=== PATIENT | female | born 1975 | race Caucasian/White ===

== ENCOUNTER 2018-03-05 10:48 | Outpatient (CLI) | payer MEDICAID ==
[~2018-03-05 10:48] MED LIST: ALBU8.5H8 IH; BENZ1LOZ15 PO; ESCI20TA29 PO; FAMO-1 PO; GUAI120015 PO; HYDR25TA4 PO; LEVO200T46 PO; LISI-600 PO; METO-292 PO; OXYB5TAB80 PO; PSEU-259 PO; TERA5CAP4 PO
[2018-03-05 11:44] LABS: BASOPHILS # (AUTO) 0.1 X10'3 (0-0.2); BASOPHILS % (AUTO) 0.6 % (0-1); EOSINOPHILS # (AUTO) 0.5 X10'3 (0-0.9); EOSINOPHILS % (AUTO) 5.7 % (0-6); HEMATOCRIT 36.3 % (35.0-45.0); HEMOGLOBIN 12.4 g/dl (12.0-16.0); LYMPHOCYTES # (AUTO) 1.9 X10'3 (1.1-4.8); LYMPHOCYTES % (AUTO) 20.8 % (21-51); MEAN CORPUSCULAR HEMOGLOBIN 30.6 PG (27.0-31.0); MEAN CORPUSCULAR HGB CONC 34.2 % (33.0-36.5); MEAN CORPUSCULAR VOLUME 89.4 FL (78-98); MEAN PLATELET VOLUME 10.4 FL (7.4-10.4); MONOCYTES # (AUTO) 0.5 X10'3 (0-0.9); NEUTROPHILS # (AUTO) 6.3 X10'3 (1.8-7.7); NEUTROPHILS % (AUTO) 67.9 % (42-75); PLATELET COUNT 195 X10'3 (140-440); RED BLOOD COUNT 4.06 X10'6 (4.20-5.60); RED CELL DISTRIBUTION WIDTH 14.7 % (11.5-14.5); WHITE BLOOD COUNT 9.2 X10'3 (4.5-11.0)
[2018-03-05 12:11] LABS: ALANINE AMINOTRANSFERASE 100 U/L (12-78); ALBUMIN 3.4 G/DL (3.4-5.0); ALBUMIN/GLOBULIN RATIO 0.8 (1.1-1.5); ALKALINE PHOSPHATASE 316 IU/L (46-116); ANION GAP 11 (8-16); ASPARTATE AMINO TRANSFERASE 22 U/L (10-37); BILIRUBIN,TOTAL 0.4 MG/DL (0.1-1.0); BLOOD UREA NITROGEN 14 MG/DL (7-18); BUN/CREATININE RATIO 17.9 (6.6-38.0); CALCIUM 8.9 MG/DL (8.5-10.1); CHLORIDE 106 MMOL/L (99-107); CREATININE 0.78 MG/DL (0.40-0.90); MAGNESIUM 1.9 MG/DL (1.5-2.4); PHOSPHORUS 4.4 MG/DL (2.3-4.5); SODIUM 143 MMOL/L (135-145); TOTAL CARBON DIOXIDE 26.5 MMOL/L (24-32); TOTAL PROTEIN 7.5 G/DL (6.4-8.2); TRIGLYCERIDES 182 MG/DL (20-135); eGFR 80 ML/MIN
[2018-03-05 12:12] LABS: GLUCOSE 94 MG/DL (70-104); VANCOMYCIN,TROUGH 17.6 UG/ML (6.0-14.0)
[2018-03-05 12:30] LABS: LARGE PLATELETS FEW; PLATELET ESTIMATE NORMAL
== END 2018-03-05 23:59 | disposition home or self-care (01) ==
LOC: LAB SPEC 10:48
DX: K31.84 Gastroparesis (principal); I10 Essential (primary) hypertension; J45.909 Unspecified asthma, uncomplicated
CPT/HCPCS: 36415; 80053; 80202; 83735; 84100; 84478; 85025

== ENCOUNTER 2018-03-26 07:01 | Day surgery (SDC) | payer MEDICAID ==
[~2018-03-26] VITALS: Ht 162.6 cm; Wt 104.2 kg
[2018-03-26] MEDS ORDERED: normal saline 1000ml 1,000 ML IV PRN (07:30)
[2018-03-26 07:43] VITALS: BP 147/91
[2018-03-26] MEDS ORDERED: midazolam 2 mg/2 ml injection IV PRN (08:30)
[2018-03-26] MEDS ORDERED: fentaNYL/PF 50MCG/1 ML 2ML syringe IV PRN (08:30)
[2018-03-26] MEDS ORDERED: midazolam 2 mg/2 ml injection ONE (08:30)
[2018-03-26] MEDS ORDERED: LIDOcaine 1%/PF (10mg/ml) 5ml vial SQ ONE (08:30)
[2018-03-26] MEDS ORDERED: fentaNYL/PF 50MCG/1 ML 2ML syringe ONE (08:30)
[2018-03-26] MEDS ORDERED: LEVOTHYROXINE SODIUM INJ (08:33)
[2018-03-26] MEDS ORDERED: ONDA4TAB9 PO (08:33)
[2018-03-26] MEDS ORDERED: HYOS0.1277 SL (08:33)
[2018-03-26] MEDS ORDERED: CAT2P TD (08:33)
[2018-03-26] MEDS ORDERED: MORPHINE SULFATE PO (08:33)
[2018-03-26] MEDS ORDERED: MORPHINE PO (08:33)
[2018-03-26] MEDS ORDERED: normal saline 1000ml 1,000 ML IV SCH (08:39)
[2018-03-26] MEDS ORDERED: LIDOcaine 0.5% (5mg/ml) 50ml vial ONE (08:44)
[2018-03-26 10:00] VITALS: BP 144/83
[2018-03-26 10:15] VITALS: BP 96/50
[2018-03-26 10:30] VITALS: BP 145/65
[2018-03-26 10:45] VITALS: BP 113/61
[2018-03-26 11:15] VITALS: BP 126/88
== END 2018-03-26 11:20 | disposition home or self-care (01) ==
LOC: SSTAY O 07:01
PROVIDERS: ATTEND Radiology Diagnostic Radiology
DX: K31.84 Gastroparesis (principal); I10 Essential (primary) hypertension; I25.10 Atherosclerotic heart disease of native coronary artery without angina pectoris; K21.9 Gastro-esophageal reflux disease without esophagitis; Z90.49 Acquired absence of other specified parts of digestive tract; F32.9 Major depressive disorder, single episode, unspecified; F41.9 Anxiety disorder, unspecified; J45.998 Other asthma; Z90.710 Acquired absence of both cervix and uterus; Z98.51 Tubal ligation status; Z79.891 Long term (current) use of opiate analgesic; Z91.040 Latex allergy status; Z87.891 Personal history of nicotine dependence; Z88.8 Allergy status to other drugs, medicaments and biological substances; Z79.899 Other long term (current) drug therapy
CPT/HCPCS: 36558; 76937; 77001; 99152; 99153; A9270; C1751; C1894; J2001; J2250; J3010; J7030; 36580; A4620

== ENCOUNTER 2018-04-13 11:35 | Emergency (ER) | payer MEDICAID ==
[~2018-04-13] VITALS: Ht 162.6 cm; Wt 104.5 kg
[~2018-04-13 11:35] MED LIST changes: -ALBU8.5H8 IH; -BENZ1LOZ15 PO; +CAT2P TD; -ESCI20TA29 PO; -FAMO-1 PO; -GUAI120015 PO; -HYDR25TA4 PO; +HYOS0.1277 SL; -LEVO200T46 PO; +LEVOTHYROXINE SODIUM INJ; -LISI-600 PO; -METO-292 PO; +MORPHINE PO; +MORPHINE SULFATE PO; +ONDA4TAB9 PO; -OXYB5TAB80 PO; -PSEU-259 PO; -TERA5CAP4 PO
[2018-04-13] MEDS ORDERED: diphenhydrAMINE 50 mg/ml inj IM ONE (12:15)
[2018-04-13 13:19] VITALS: BP 148/68
== END 2018-04-13 13:21 | disposition home or self-care (01) ==
LOC: ER 11:35
DX: T80.218A Other infection due to central venous catheter, initial encounter (principal); L08.9 Local infection of the skin and subcutaneous tissue, unspecified; I10 Essential (primary) hypertension; J45.909 Unspecified asthma, uncomplicated; E03.9 Hypothyroidism, unspecified; G89.29 Other chronic pain; F12.90 Cannabis use, unspecified, uncomplicated; Z85.9 Personal history of malignant neoplasm, unspecified; Z90.79 Acquired absence of other genital organ(s); Z90.710 Acquired absence of both cervix and uterus; Z56.0 Unemployment, unspecified; Z91.040 Latex allergy status; Z88.8 Allergy status to other drugs, medicaments and biological substances; Z79.899 Other long term (current) drug therapy
CPT/HCPCS: 71045; 96372; 99283; J1200; 99284

== ENCOUNTER 2018-05-19 17:43 | Emergency (ER) | payer MEDICAID ==
[~2018-05-19] VITALS: Ht 162.6 cm; Wt 104.0 kg
[2018-05-19 19:16] VITALS: BP 154/89
== END 2018-05-19 19:16 | disposition home or self-care (01) ==
LOC: ER 17:44
DX: T82.898A Other specified complication of vascular prosthetic devices, implants and grafts, initial encounter (principal); I10 Essential (primary) hypertension; J45.909 Unspecified asthma, uncomplicated; E03.9 Hypothyroidism, unspecified; F12.90 Cannabis use, unspecified, uncomplicated; Z90.49 Acquired absence of other specified parts of digestive tract; Z90.710 Acquired absence of both cervix and uterus; Z56.0 Unemployment, unspecified; Z91.040 Latex allergy status; Z88.8 Allergy status to other drugs, medicaments and biological substances; Z79.899 Other long term (current) drug therapy
CPT/HCPCS: 99281

== ENCOUNTER 2018-05-25 12:01 | Outpatient (CLI) | payer MEDICAID ==
[2018-05-25 12:29] LABS: ALANINE AMINOTRANSFERASE 28 U/L (12-78); ALBUMIN 3.3 G/DL (3.4-5.0); ALBUMIN/GLOBULIN RATIO 0.9 (1.1-1.5); ALKALINE PHOSPHATASE 98 IU/L (46-116); ANION GAP 4 (8-16); ASPARTATE AMINO TRANSFERASE 22 U/L (10-37); BILIRUBIN,TOTAL 0.2 MG/DL (0.1-1.0); BLOOD UREA NITROGEN 15 MG/DL (7-18); BUN/CREATININE RATIO 15.5 (6.6-38.0); CHLORIDE 106 MMOL/L (99-107); CREATININE 0.97 MG/DL (0.40-0.90); POTASSIUM 4.2 MMOL/L (3.5-5.1); SODIUM 140 MMOL/L (135-145); TOTAL CARBON DIOXIDE 29.7 MMOL/L (24-32); TOTAL PROTEIN 7.1 G/DL (6.4-8.2); TRIGLYCERIDES 232 MG/DL (20-135); eGFR 62 ML/MIN
[2018-05-25 12:30] LABS: GLUCOSE 76 MG/DL (70-104)
[2018-05-25 12:35] LABS: BASOPHILS % (AUTO) 0.5 % (0-1); EOSINOPHILS # (AUTO) 0.8 X10'3 (0-0.9); EOSINOPHILS % (AUTO) 8.6 % (0-6); HEMATOCRIT 36.8 % (35.0-45.0); HEMOGLOBIN 12.5 g/dl (12.0-16.0); LYMPHOCYTES # (AUTO) 2.7 X10'3 (1.1-4.8); LYMPHOCYTES % (AUTO) 30.1 % (21-51); MEAN CORPUSCULAR HEMOGLOBIN 29.9 PG (27.0-31.0); MEAN CORPUSCULAR HGB CONC 33.9 % (33.0-36.5); MEAN CORPUSCULAR VOLUME 88.2 FL (78-98); MEAN PLATELET VOLUME 10.7 FL (7.4-10.4); MONOCYTES # (AUTO) 0.5 X10'3 (0-0.9); NEUTROPHILS # (AUTO) 4.9 X10'3 (1.8-7.7); NEUTROPHILS % (AUTO) 54.8 % (42-75); PLATELET COUNT 197 X10'3 (140-440); RED BLOOD COUNT 4.18 X10'6 (4.20-5.60); RED CELL DISTRIBUTION WIDTH 13.8 % (11.5-14.5)
== END 2018-05-25 23:59 | disposition home or self-care (01) ==
LOC: LAB SPEC 12:01
PROVIDERS: ATTEND Internal Medicine Gastroenterology
DX: K31.84 Gastroparesis (principal); F10.10 Alcohol abuse, uncomplicated; I10 Essential (primary) hypertension
CPT/HCPCS: 36415; 80053; 83735; 84100; 84478; 85025

== ENCOUNTER 2019-09-15 08:32 | Emergency (ER) | payer MEDICAID ==
[~2019-09-15] VITALS: Ht 162.6 cm; Wt 99.0 kg
[2019-09-15 08:42] VITALS: BP 169/78
== END 2019-09-15 11:00 | disposition home or self-care (01) ==
LOC: ER 08:33
DX: Z45.2 Encounter for adjustment and management of vascular access device (principal); I10 Essential (primary) hypertension; J45.909 Unspecified asthma, uncomplicated; E03.9 Hypothyroidism, unspecified; G89.29 Other chronic pain; F32.9 Major depressive disorder, single episode, unspecified; F12.90 Cannabis use, unspecified, uncomplicated; Z90.49 Acquired absence of other specified parts of digestive tract; Z90.710 Acquired absence of both cervix and uterus; Z56.0 Unemployment, unspecified; Z91.040 Latex allergy status; Z88.8 Allergy status to other drugs, medicaments and biological substances; Z79.899 Other long term (current) drug therapy
CPT/HCPCS: 70360; 71045; 99284; 99285

== ENCOUNTER 2019-12-20 09:10 | Day surgery (SDC) | payer MEDICAID ==
[2019-12-20] VITALS (11 sets, daily range): BP systolic 128–167; BP diastolic 63–81
[~2019-12-20] VITALS: Ht 162.6 cm; Wt 117.2 kg
[2019-12-20] MEDS ORDERED: diphenhydrAMINE 25mg capsule PO PRN (09:40)
[2019-12-20] MEDS ORDERED: normal saline 1,000 ML IV SCH (09:40)
[2019-12-20] MEDS ORDERED: FAMO20TA8 IV (09:44)
[2019-12-20] MEDS ORDERED: FAMO40TA7 IV (09:44)
[2019-12-20] MEDS ORDERED: diphenhydramine IV (09:51)
[2019-12-20] MEDS ORDERED: TPN (09:51)
[2019-12-20] MEDS ORDERED: [UNRECOGNIZED DRUG - OTHER] IV (09:51)
[2019-12-20] MEDS ORDERED: Famotidine IV (09:51)
[2019-12-20] MEDS ORDERED: NITR0.4T51 SL (09:51)
[2019-12-20 10:19] LABS: BASOPHILS # (AUTO) 0.1 X10'3 (0-0.2); BASOPHILS % (AUTO) 0.7 % (0-1); EOSINOPHILS # (AUTO) 0.7 X10'3 (0-0.9); EOSINOPHILS % (AUTO) 7.8 % (0-6); HEMATOCRIT 36.3 % (35.0-45.0); HEMOGLOBIN 12.4 g/dl (12.0-16.0); LYMPHOCYTES # (AUTO) 2.9 X10'3 (1.1-4.8); LYMPHOCYTES % (AUTO) 32.6 % (21-51); MEAN CORPUSCULAR HEMOGLOBIN 28.5 PG (27.0-31.0); MEAN CORPUSCULAR HGB CONC 34.2 g/dL (33.0-36.5); MEAN CORPUSCULAR VOLUME 83.2 FL (78-98); MONOCYTES # (AUTO) 0.5 X10'3 (0-0.9); MONOCYTES % (AUTO) 5.8 % (2-12); NEUTROPHILS # (AUTO) 4.8 X10'3 (1.8-7.7); NEUTROPHILS % (AUTO) 53.1 % (42-75); PLATELET COUNT 254 X10'3 (140-440); RED BLOOD COUNT 4.37 X10'6 (4.20-5.60); RED CELL DISTRIBUTION WIDTH 15.4 % (11.5-14.5)
[2019-12-20] MEDS ORDERED: diphenhydrAMINE 50 mg/ml inj IV ONE (10:25)
[2019-12-20 10:29] LABS: ALBUMIN 3.4 G/DL (3.4-5.0); ANION GAP 6 (8-16); BLOOD UREA NITROGEN 11 MG/DL (7-18); BUN/CREATININE RATIO 12.4 (6.6-38.0); CALCIUM 8.8 MG/DL (8.5-10.1); CHLORIDE 107 MMOL/L (99-107); CREATININE 0.89 MG/DL (0.40-0.90); GLUCOSE 90 MG/DL (70-104); MAGNESIUM 1.7 MG/DL (1.5-2.4); POTASSIUM 4.2 MMOL/L (3.5-5.1); SODIUM 140 MMOL/L (135-145); TOTAL CARBON DIOXIDE 27.1 MMOL/L (24-32); eGFR 68 ML/MIN
[2019-12-20] MEDS ORDERED: LIDOcaine 1% (10mg/ml)w/preservative injection 20ml MDV ONE (10:31)
[2019-12-20] MEDS ORDERED: fentaNYL/PF 50MCG/1 ML 2ML syringe ONE ×2 (10:31→11:07)
[2019-12-20] MEDS ORDERED: iohexol 350MG/ML 100ml bottle IV ONE (10:31)
[2019-12-20] MEDS ORDERED: iohexol 350 MG/ML 50ML vial IV ONE (10:31)
[2019-12-20] MEDS ORDERED: midazolam 2 mg/2 ml injection ONE ×4 (10:31→11:08)
[2019-12-20] MEDS ORDERED: morphine 2 MG/ML inj. syringe ONE (11:11)
[2019-12-20] MEDS ORDERED: proCHLORperazine 10 MG/2 ml inj IV PRN (11:55)
[2019-12-20] MEDS ORDERED: HYDROcodone/acetaminophen 10/325mg tab PO PRN (11:55)
[2019-12-20] MEDS ORDERED: acetaminophen 325mg tablet PO PRN (11:55)
[2019-12-20] MEDS ORDERED: HYDROcodone/acetaminophen 5mg/325mg tablet PO PRN (11:55)
[2019-12-20] MEDS ORDERED: ondansetron/PF 4mg/2ml inj IV PRN (11:55)
== END 2019-12-20 15:00 | disposition home or self-care (01) ==
LOC: SSTAY O 09:10
PROVIDERS: ATTEND Internal Medicine Cardiovascular Disease
DX: R94.39 Abnormal result of other cardiovascular function study (principal); E78.5 Hyperlipidemia, unspecified; Z79.01 Long term (current) use of anticoagulants; Z79.899 Other long term (current) drug therapy
CPT/HCPCS: 36415; 80048; 83735; 85025; 85610; 93458; 99152; 99153; C1769; C1894; J1200; J1644; J2001; J2250; J2270; J3010; J7030; Q9967; A4620; A6258; C1760

== ENCOUNTER 2021-06-01 16:08 | Outpatient (CLI) | payer MEDICAID ==
[~2021-06-01 16:08] MED LIST changes: +Famotidine IV; -HYOS0.1277 SL; -MORPHINE PO; -MORPHINE SULFATE PO; +NITR0.4T51 SL; -ONDA4TAB9 PO; +TPN; +[UNRECOGNIZED DRUG - OTHER] IV; +diphenhydramine IV
[2021-06-01 17:06] LABS: BASOPHILS # (AUTO) 0.1 X10'3 (0-0.2); EOSINOPHILS # (AUTO) 0.6 X10'3 (0-0.9); EOSINOPHILS % (AUTO) 8.6 % (0-6); HEMATOCRIT 38.4 % (35.0-45.0); HEMOGLOBIN 12.7 g/dl (12.0-16.0); LYMPHOCYTES # (AUTO) 2.5 X10'3 (1.1-4.8); LYMPHOCYTES % (AUTO) 33.9 % (21-51); MEAN CORPUSCULAR HGB CONC 33.1 g/dL (33.0-36.5); MEAN CORPUSCULAR VOLUME 90.7 FL (78-98); MEAN PLATELET VOLUME 10.1 FL (7.4-10.4); MONOCYTES # (AUTO) 0.5 X10'3 (0-0.9); MONOCYTES % (AUTO) 6.9 % (2-12); NEUTROPHILS # (AUTO) 3.7 X10'3 (1.8-7.7); NEUTROPHILS % (AUTO) 49.6 % (42-75); PLATELET COUNT 214 X10'3 (140-440); RED BLOOD COUNT 4.23 X10'6 (4.20-5.60); RED CELL DISTRIBUTION WIDTH 14.8 % (11.5-14.5); WHITE BLOOD COUNT 7.5 X10'3 (4.5-11.0)
[2021-06-01 17:24] LABS: ALANINE AMINOTRANSFERASE 23 U/L (12-78); ALBUMIN 3.3 G/DL (3.4-5.0); ALBUMIN/GLOBULIN RATIO 0.9 (1.1-1.5); ALKALINE PHOSPHATASE 101 IU/L (46-116); ANION GAP 8 (8-16); ASPARTATE AMINO TRANSFERASE 19 U/L (10-37); BILIRUBIN,TOTAL 0.2 MG/DL (0.1-1.0); BLOOD UREA NITROGEN 9 MG/DL (7-18); BUN/CREATININE RATIO 10.6 (6.6-38.0); CALCIUM 8.1 MG/DL (8.5-10.1); CHLORIDE 107 MMOL/L (99-107); CREATININE 0.85 MG/DL (0.40-0.90); GLUCOSE 104 MG/DL (70-104); MAGNESIUM 1.7 MG/DL (1.5-2.4); POTASSIUM 3.8 MMOL/L (3.5-5.1); SODIUM 145 MMOL/L (135-145); TOTAL CARBON DIOXIDE 29.6 MMOL/L (24-32); eGFR 72 ML/MIN
== END 2021-06-01 23:59 | disposition home or self-care (01) ==
LOC: LAB SPEC 16:08
PROVIDERS: ATTEND Internal Medicine Gastroenterology
DX: K31.84 Gastroparesis (principal)
CPT/HCPCS: 36415; 80053; 83735; 85025

== ENCOUNTER → 2021-08-14 | Outpatient (CLI) | payer MEDICAID ==
[2021-08-14 17:47] LABS: BASOPHILS # (AUTO) 0.1 X10'3 (0-0.2); BASOPHILS % (AUTO) 0.5 % (0-1); EOSINOPHILS # (AUTO) 0.5 X10'3 (0-0.9); EOSINOPHILS % (AUTO) 4.4 % (0-6); HEMATOCRIT 38.6 % (35.0-45.0); HEMOGLOBIN 12.7 g/dl (12.0-16.0); LYMPHOCYTES % (AUTO) 27.4 % (21-51); MEAN CORPUSCULAR HEMOGLOBIN 29.1 PG (27.0-31.0); MEAN CORPUSCULAR VOLUME 88.2 FL (78-98); MEAN PLATELET VOLUME 9.9 FL (7.4-10.4); MONOCYTES # (AUTO) 0.9 X10'3 (0-0.9); MONOCYTES % (AUTO) 7.7 % (2-12); NEUTROPHILS # (AUTO) 6.6 X10'3 (1.8-7.7); PLATELET COUNT 267 X10'3 (140-440); RED BLOOD COUNT 4.37 X10'6 (4.20-5.60); RED CELL DISTRIBUTION WIDTH 14.8 % (11.5-14.5)
[2021-08-14 17:52] LABS: ALANINE AMINOTRANSFERASE 24 U/L (12-78); ALBUMIN 3.3 G/DL (3.4-5.0); ALBUMIN/GLOBULIN RATIO 0.8 (1.1-1.5); ALKALINE PHOSPHATASE 130 IU/L (46-116); ANION GAP 12 (8-16); ASPARTATE AMINO TRANSFERASE 16 U/L (10-37); BILIRUBIN,TOTAL 0.3 MG/DL (0.1-1.0); BLOOD UREA NITROGEN 14 MG/DL (7-18); BUN/CREATININE RATIO 16.9 (6.6-38.0); CALCIUM 8.3 MG/DL (8.5-10.1); CHLORIDE 107 MMOL/L (99-107); CREATININE 0.83 MG/DL (0.40-0.90); GLUCOSE 77 MG/DL (70-104); MAGNESIUM 1.7 MG/DL (1.5-2.4); PHOSPHORUS 3.9 MG/DL (2.3-4.5); POTASSIUM 4.3 MMOL/L (3.5-5.1); SODIUM 145 MMOL/L (135-145); TOTAL CARBON DIOXIDE 26.5 MMOL/L (24-32); TOTAL PROTEIN 7.4 G/DL (6.4-8.2); TRIGLYCERIDES 169 MG/DL (20-135); eGFR 73 ML/MIN
== END | disposition home or self-care (01) ==
LOC: LAB SPEC 17:18
PROVIDERS: ATTEND Internal Medicine Gastroenterology
DX: K31.84 Gastroparesis (principal)
CPT/HCPCS: 36415; 80053; 83735; 84100; 84478; 85025

== ENCOUNTER 2024-11-30 17:26 | Inpatient (IN) | payer MEDICAID ==
[~2024-11-30] VITALS: Ht 162.6 cm; Wt 137.0 kg
[~2024-11-30 17:26] MED LIST changes: +ALBU6.7H14 INH; +AMLO10TA13 PO; +BACL-11 PO; -CAT2P TD; +DULO60CA65 PO; -Famotidine IV; +LEVO100T9 PO; -LEVOTHYROXINE SODIUM INJ; +LISI20TA28 PO; +ONDA-245 PO; -TPN; -[UNRECOGNIZED DRUG - OTHER] IV; -diphenhydramine IV
[2024-11-30 17:59] LABS: BASOPHILS # (AUTO) 0.1 X10'3 (0-0.2); BASOPHILS % (AUTO) 0.9 % (0-1); EOSINOPHILS # (AUTO) 0.6 X10'3 (0-0.9); HEMATOCRIT 41.7 % (35.0-45.0); HEMOGLOBIN 14.1 g/dl (12.0-16.0); LYMPHOCYTES # (AUTO) 2.8 X10'3 (1.1-4.8); LYMPHOCYTES % (AUTO) 23.4 % (21-51); MEAN CORPUSCULAR HEMOGLOBIN 31.8 PG (27.0-31.0); MEAN CORPUSCULAR HGB CONC 33.7 g/dL (33.0-36.5); MEAN CORPUSCULAR VOLUME 94.2 FL (78-98); MEAN PLATELET VOLUME 8.6 FL (7.4-10.4); MONOCYTES # (AUTO) 0.8 X10'3 (0-0.9); MONOCYTES % (AUTO) 6.7 % (2-12); NEUTROPHILS # (AUTO) 7.6 X10'3 (1.8-7.7); PLATELET COUNT 297 X10'3 (140-440); RED BLOOD COUNT 4.43 X10'6 (4.20-5.60); RED CELL DISTRIBUTION WIDTH 14.7 % (11.5-14.5); WHITE BLOOD COUNT 11.8 X10'3 (4.5-11.0)
[2024-11-30 18:36] LABS: ALANINE AMINOTRANSFERASE 23 U/L (12-78); ALBUMIN 3.8 G/DL (3.4-5.0); ALBUMIN/GLOBULIN RATIO 0.8 (1.1-1.5); ALKALINE PHOSPHATASE 95 IU/L (46-116); ANION GAP 5 (8-16); ASPARTATE AMINO TRANSFERASE 12 U/L (10-37); BILIRUBIN,TOTAL 0.4 MG/DL (0.1-1.0); BLOOD UREA NITROGEN 12 MG/DL (7-18); BUN/CREATININE RATIO 11.2 (10.0-20.0); CALCIUM 9.2 MG/DL (8.5-10.1); CHLORIDE 102 MMOL/L (99-107); CREATININE 1.07 MG/DL (0.40-0.90); GLUCOSE 106 MG/DL (70-104); POTASSIUM 4.1 MMOL/L (3.5-5.1); SODIUM 142 MMOL/L (135-145); TOTAL CARBON DIOXIDE 34.9 MMOL/L (24-32); TOTAL PROTEIN 8.5 G/DL (6.4-8.2); eGFR 54 ML/MIN
[2024-11-30 18:37] LABS: PRO BRAIN NATRIURETIC PEPTIDE 40 PG/ML (0-125)
[2024-11-30] MEDS ORDERED: ATOG60TA (22:46)
[2024-11-30] MEDS ORDERED: CYAN-104 (22:46)
[2024-11-30] MEDS ORDERED: ATOR-2 (22:46)
[2024-11-30] MEDS ORDERED: PREG100C56 (22:46)
[2024-11-30] MEDS ORDERED: magnesium hydroxide 30ml (MOM) UD suspension PO PRN (23:00)
[2024-11-30] MEDS ORDERED: HYDROcodone/acetaminophen 5mg/325mg tablet PO PRN (23:00)
[2024-11-30] MEDS ORDERED: magnesium Cl slow-release 64mg tablet PO PRN (23:00)
[2024-11-30] MEDS ORDERED: potassium Cl 20 mEq SR tablet PO PRN ×2 (23:00)
[2024-11-30] MEDS ORDERED: mag hydrox/Alum hydrox/simeth 30ml oral suspension PO PRN (23:00)
[2024-11-30] MEDS ORDERED: magnesium sulf-water 2g/50mL 50 ML IV PRN (23:00)
[2024-11-30] MEDS ORDERED: magnesium sulf-water 4G/100mL 100 ML IV PRN (23:00)
[2024-11-30] MEDS ORDERED: potassium Cl 40MEQ/1/2NS 520ml 520 ML IV PRN (23:00)
[2024-11-30] MEDS ORDERED: acetaminophen 325mg tablet PO PRN (23:00)
[2024-12-01] VITALS (20 sets, daily range): BP systolic 138–210; BP diastolic 67–132; PULSE 72–107; RESP 16–18; TEMP 97.4–98.1; O2SAT 91–99
[2024-12-01] MEDS: aspirin 81mg tab.chew PO ONE (00:11)
[2024-12-01] MEDS ORDERED: non-formulary drug (Ondansetron 8mg ODT*** (Ondansetron Odt) 1 TAB) PO PRN (03:05)
[2024-12-01] MEDS ORDERED: nitroGLYCERIN 0.4mg SUBLingual tab SL PRN ×2 (03:05→04:05)
[2024-12-01 03:08] LABS: ALBUMIN 3.3 G/DL (3.4-5.0); ANION GAP 4 (8-16); BLOOD UREA NITROGEN 11 MG/DL (7-18); BUN/CREATININE RATIO 12.6 (10.0-20.0); CALCIUM 8.9 MG/DL (8.5-10.1); CHLORIDE 103 MMOL/L (99-107); CREATININE 0.87 MG/DL (0.40-0.90); GLUCOSE 107 MG/DL (70-104); MAGNESIUM 3.3 MG/DL (1.5-2.4); PHOSPHORUS 4.1 MG/DL (2.3-4.5); POTASSIUM 4.1 MMOL/L (3.5-5.1); SODIUM 140 MMOL/L (135-145); TOTAL CARBON DIOXIDE 32.7 MMOL/L (24-32); eCRCL 66 ML/MIN; eGFR 69 ML/MIN
[2024-12-01] MEDS: diphenhydrAMINE 25mg capsule PO ONE (03:13)
[2024-12-01] MEDS ORDERED: albuterol 2.5 MG/3 ML nebule NEB PRN (03:25)
[2024-12-01 03:54] LABS: BASOPHILS # (AUTO) 0.1 X10'3 (0-0.2); BASOPHILS % (AUTO) 1.1 % (0-1); EOSINOPHILS # (AUTO) 0.6 X10'3 (0-0.9); EOSINOPHILS % (AUTO) 4.9 % (0-6); HEMATOCRIT 38.9 % (35.0-45.0); HEMOGLOBIN 12.9 g/dl (12.0-16.0); LYMPHOCYTES # (AUTO) 2.9 X10'3 (1.1-4.8); LYMPHOCYTES % (AUTO) 23.6 % (21-51); MEAN CORPUSCULAR HEMOGLOBIN 31.2 PG (27.0-31.0); MEAN CORPUSCULAR HGB CONC 33.2 g/dL (33.0-36.5); MEAN CORPUSCULAR VOLUME 93.8 FL (78-98); MEAN PLATELET VOLUME 8.6 FL (7.4-10.4); MONOCYTES # (AUTO) 0.7 X10'3 (0-0.9); MONOCYTES % (AUTO) 5.7 % (2-12); NEUTROPHILS # (AUTO) 7.8 X10'3 (1.8-7.7); NEUTROPHILS % (AUTO) 64.7 % (42-75); PLATELET COUNT 249 X10'3 (140-440); RED BLOOD COUNT 4.14 X10'6 (4.20-5.60); RED CELL DISTRIBUTION WIDTH 14.9 % (11.5-14.5); WHITE BLOOD COUNT 12.1 X10'3 (4.5-11.0)
[2024-12-01] MEDS ORDERED: aminophylline 250mg/10ml inj. IV PRN (04:05)
[2024-12-01] MEDS ORDERED: metoprolol tartrate 1mg/ml inj IV PRN (04:05)
[2024-12-01 04:20] LABS: THYROID STIMULATING HORMONE 97.35 ulU/ml (0.34-4.50)
[2024-12-01] MEDS: amLODIPine 5mg tablet PO ONE (04:51)
[2024-12-01] MEDS: docusate sod 100mg capsule PO SCH (08:00)
[2024-12-01] MEDS: K and/or MAG REPLACEMENT MC SCH (08:00)
[2024-12-01] MEDS: duloxetine 30mg CAPSULE.DR PO SCH (08:35)
[2024-12-01] MEDS: levoTHYROXINE 100mcg tablet PO SCH (08:35)
[2024-12-01] MEDS: amLODIPine 5mg tablet PO SCH (08:36)
[2024-12-01] MEDS: lisinopril 20mg tablet PO SCH (08:37)
[2024-12-01] MEDS ORDERED: pneumococcal 23-VAL P-sac vacc 25 mcg/0.5ml vial IMVAC ONE (10:00)
[2024-12-01] MEDS: regadenoson 0.4mg/5ml syringe IV PRN (10:41)
[2024-12-01] MEDS: aminophylline 500mg/20ml vial IV PRN (11:20)
[2024-12-01] MEDS: ondansetron/PF 4mg/2ml inj IV PRN (12:16)
[2024-12-01] MEDS ORDERED: PANT-47 PO (14:51)
== END 2024-12-01 16:59 | disposition home or self-care (01) | DRG 243 ==
LOC: ER 17:26 → OBSVTOIN 23:02 → PCU 3S 23:02
PROVIDERS: ADMIT Internal Medicine Pulmonary Disease; ATTEND Internal Medicine
PROC: 4A02XM4 Measurement of Cardiac Total Activity, External Approach (ICD-10-PCS; principal; 2024-12-01)
PROC: 3E033HZ Introduction of Radioactive Substance into Peripheral Vein, Percutaneous Approach (ICD-10-PCS; 2024-12-01)
DX: K21.9 Gastro-esophageal reflux disease without esophagitis (principal); Z68.43 Body mass index [BMI] 50.0-59.9, adult; F32.A Depression, unspecified; E03.9 Hypothyroidism, unspecified; E66.01 Morbid (severe) obesity due to excess calories; E78.5 Hyperlipidemia, unspecified; I25.10 Atherosclerotic heart disease of native coronary artery without angina pectoris; J45.909 Unspecified asthma, uncomplicated; I10 Essential (primary) hypertension; Z88.8 Allergy status to other drugs, medicaments and biological substances; Z79.899 Other long term (current) drug therapy; Z88.1 Allergy status to other antibiotic agents; Z90.710 Acquired absence of both cervix and uterus; Z91.040 Latex allergy status
CPT/HCPCS: 36415; 71045; 78452; 80048; 80053; 83735; 83880; 84100; 84443; 84484; 85025; 87081; 93005; 93017; 99285; A4615; A9500; G0378; J0280; J2405; J2785; Q0163